=== PATIENT | female | born 1965 | race Caucasian/White ===

== ENCOUNTER → 2018-07-03 | Outpatient (CLI) | payer OTHER | END | disposition home or self-care (01) | LOC: US 06-21 09:00 | DX: R10.84 Generalized abdominal pain (principal); N95.9 Unspecified menopausal and perimenopausal disorder ==

== ENCOUNTER → 2019-08-27 | Day surgery (SDC) | payer OTHER ==
[~2019-08-27] VITALS: Ht 162.5 cm; Wt 49.9 kg
[~2019-08-27] MED LIST: LEVOTHYROXINE125 MCG PO
[2019-08-27 08:51] VITALS: BP 156/78
[2019-08-27 09:32] VITALS: BP 195/117
[2019-08-27 09:47] VITALS: BP 133/65
[2019-08-27 10:02] VITALS: BP 123/63
[2019-08-27 10:16] VITALS: BP 116/66
[2019-08-27 10:32] VITALS: BP 135/75
[2019-08-28 15:04] LABS: ACID FAST SPEC PROCESSING Concentration (.)
== END | disposition home or self-care (01) ==
LOC: SDC 08:27
PROVIDERS: Internal Medicine Critical Care Medicine
DX: J45.40 Moderate persistent asthma, uncomplicated (principal); R91.8 Other nonspecific abnormal finding of lung field; K21.9 Gastro-esophageal reflux disease without esophagitis; R05 Cough; Z79.899 Other long term (current) drug therapy; Z82.5 Family history of asthma and other chronic lower respiratory diseases

== ENCOUNTER → 2019-09-01 | Outpatient (CLI) | payer OTHER ==
[2019-09-01 07:34] LABS: BUN 14 mg/dl (7-24); CREATININE 0.65 mg/dL (0.55-1.02)
== END | disposition home or self-care (01) ==
LOC: LAB 07:10 → CT 08:00
PROVIDERS: Internal Medicine Critical Care Medicine
DX: J98.11 Atelectasis (principal); R91.8 Other nonspecific abnormal finding of lung field; Z01.812 Encounter for preprocedural laboratory examination

== ENCOUNTER → 2019-09-23 | Outpatient (CLI) | payer OTHER | END | disposition home or self-care (01) | LOC: NM 10:53 | DX: Z01.818 Encounter for other preprocedural examination (principal); R91.8 Other nonspecific abnormal finding of lung field; J98.11 Atelectasis ==

== ENCOUNTER → 2019-11-05 | Outpatient (CLI) | payer OTHER | END | disposition home or self-care (01) | LOC: NM 08:27 | DX: J44.9 Chronic obstructive pulmonary disease, unspecified (principal); J98.11 Atelectasis; C34.92 Malignant neoplasm of unspecified part of left bronchus or lung ==

== ENCOUNTER → 2019-11-26 | Outpatient (CLI) | payer OTHER | LOC: CARD 08:51 | DX: Z01.818 Encounter for other preprocedural examination (principal); C34.92 Malignant neoplasm of unspecified part of left bronchus or lung; R06.02 Shortness of breath ==

== ENCOUNTER → 2020-04-25 | Outpatient (CLI) | payer OTHER | END | disposition home or self-care (01) | LOC: CT 09:58 | PROVIDERS: ATTEND Internal Medicine | DX: J90 Pleural effusion, not elsewhere classified (principal); R51.9 Headache, unspecified; R94.5 Abnormal results of liver function studies ==

== ENCOUNTER → 2020-04-28 | Outpatient (CLI) | payer OTHER | END | disposition home or self-care (01) | LOC: US 04-15 08:30 | PROVIDERS: ATTEND Internal Medicine | DX: R42 Dizziness and giddiness (principal) ==

== ENCOUNTER 2020-09-18 07:56 | Observation (INO) | payer OTHER ==
[2020-09-18] VITALS (8 sets, daily range): BP systolic 135–156; BP diastolic 66–96
[~2020-09-18] VITALS: Ht 162.5 cm; Wt 50.4 kg
[2020-09-18 08:27] LABS: BASO % 0.4 % (0.0-1.0); EOS # 0.2 10*3/uL (0.0-0.4); EOS % 2.1 % (1.0-4.0); LYMPH # 1.6 10*3/uL (1.3-4.4); MEAN CELL VOLUME 74.3 fl (81.0-99.0); MEAN CORPUSCULAR HGB 22.9 pg (27.0-31.0); MEAN CORPUSCULAR HGB CONC 30.8 g/dl (33.0-37.0); MEAN PLATELET VOLUME 9.3 fl (9.6-12.3); MONO # 0.5 10*3/uL (0.1-1.0); MONO % 7.6 % (3.0-9.0); NEUT # 4.8 10*3/uL (2.3-7.9); NEUT % 67.6 % (47.0-73.0); PLATELET COUNT AUTOMATED 546 10*3/uL (130-400); RED BLOOD COUNT 4.98 10*6/uL (4.10-5.10); RED CELL DISTRI WIDTH 14.3 % (0-14.5); WHITE BLOOD COUNT 7.2 10*3/uL (4.8-10.8)
[2020-09-18 08:39] LABS: ACT PARTIAL THROMBO TIME 27.1 SECONDS (20.0-32.1)
[2020-09-18 08:44] LABS: ALBUMIN 2.8 gm/dl (3.1-4.5); ALKALINE PHOSPHATASE 252 U/L (45-117); BUN 10 mg/dl (7-24); CHLORIDE 104 mmol/L (98-107); CREATININE 0.67 mg/dL (0.55-1.02); LIPASE 93 U/L (73-393); POTASSIUM 4.1 mmol/L (3.5-5.1); SGOT/AST 45 IU/L (3-35); SGPT/ALT 65 U/L (12-78); SODIUM 138 mmol/L (136-145); TOTAL PROTEIN 7.8 gm/dL (6.4-8.2)
[2020-09-18 08:45] LABS: TROPONIN I < 0.015 ng/ml (<0.045)
[2020-09-18 14:02] LABS: CHOLESTEROL 124 mg/dL (<200); HDL CHOLESTEROL 44 mg/dl (40-60); LDL CHOLESTEROL 58 mg/dL (9-159); TRIGLYCERIDES 110 mg/dl (<150); VLDL CHOLESTEROL 22 mg/dL (6-40)
[2020-09-19] VITALS: BP 145/75
[2020-09-19 08:00] VITALS: BP 134/66
[2020-09-19 08:30] VITALS: BP 124/78
[2020-09-19 12:00] VITALS: BP 145/76
[2020-09-19 16:00] VITALS: BP 138/42
[2020-09-19 20:01] VITALS: BP 124/68
[2020-09-20] VITALS: BP 136/72
[2020-09-20 08:00] VITALS: BP 130/88
[2020-09-20] MEDS ORDERED: CLOPIDOGREL75 MG PO (10:23)
[2020-09-20] MEDS ORDERED: LEADER ASPIRIN325 MG PO (10:23)
== END 2020-09-20 11:25 | disposition home or self-care (01) ==
LOC: ED 07:56 → EDHOLD 09:44 → 5E 09:53
PROVIDERS: Emergency Medicine; ADMIT Internal Medicine; ATTEND Internal Medicine
DX: G81.94 Hemiplegia, unspecified affecting left nondominant side (principal); G95.9 Disease of spinal cord, unspecified; R47.9 Unspecified speech disturbances; I10 Essential (primary) hypertension; E03.9 Hypothyroidism, unspecified; Z90.2 Acquired absence of lung [part of]; Z79.82 Long term (current) use of aspirin; Z79.01 Long term (current) use of anticoagulants; Z79.899 Other long term (current) drug therapy

== ENCOUNTER → 2021-02-03 | Outpatient (CLI) | payer OTHER ==
[~2021-02-03] MED LIST changes: +CLOPIDOGREL75 MG PO; +LEADER ASPIRIN325 MG PO
== END | disposition home or self-care (01) ==
LOC: US 10:18
PROVIDERS: ATTEND Internal Medicine Gastroenterology
DX: R74.8 Abnormal levels of other serum enzymes (principal)

== ENCOUNTER → 2021-03-23 | Outpatient (CLI) | payer OTHER ==
[2021-03-23 11:48] LABS: ALBUMIN 3.2 gm/dl (3.1-4.5); BUN 8 mg/dl (7-24); CHLORIDE 104 mmol/L (98-107); POTASSIUM 4.3 mmol/L (3.5-5.1); SGOT/AST 33 IU/L (3-35); SGPT/ALT 50 U/L (12-78); SODIUM 136 mmol/L (136-145)
[2021-03-23 11:51] LABS: ALKALINE PHOSPHATASE 203 U/L (45-117); TOTAL PROTEIN 8.3 gm/dL (6.4-8.2)
== END | disposition home or self-care (01) ==
LOC: LAB 10:29
PROVIDERS: ATTEND Internal Medicine Gastroenterology
DX: R10.9 Unspecified abdominal pain (principal)

== ENCOUNTER → 2021-03-29 | Outpatient (CLI) | payer OTHER | END | disposition home or self-care (01) | LOC: CT 09:51 | PROVIDERS: ATTEND Internal Medicine Gastroenterology | DX: N28.0 Ischemia and infarction of kidney (principal); R74.8 Abnormal levels of other serum enzymes ==

== ENCOUNTER → 2021-05-26 | Outpatient (CLI) | payer OTHER | END | disposition home or self-care (01) | LOC: LAB 14:49 | PROVIDERS: ATTEND Internal Medicine Gastroenterology | DX: R74.8 Abnormal levels of other serum enzymes (principal) ==

== ENCOUNTER → 2021-08-22 | Outpatient (CLI) | payer OTHER | END | disposition home or self-care (01) | LOC: CT 07:49 | PROVIDERS: ATTEND Internal Medicine | DX: C34.90 Malignant neoplasm of unspecified part of unspecified bronchus or lung (principal); R91.1 Solitary pulmonary nodule; J98.11 Atelectasis; M81.0 Age-related osteoporosis without current pathological fracture; Z85.118 Personal history of other malignant neoplasm of bronchus and lung; Z78.0 Asymptomatic menopausal state; Z90.2 Acquired absence of lung [part of] ==

== ENCOUNTER → 2022-08-03 | Outpatient (CLI) | payer MEDICARE ==
[~2022-08-03] MED LIST changes: +LEVOTHYROXINE100 MC1 PO; +PROPRANOLOL HYD20 MG PO
== END | disposition home or self-care (01) ==
LOC: CARD 06-29 07:30
PROVIDERS: ATTEND Internal Medicine
DX: I10 Essential (primary) hypertension (principal)

== ENCOUNTER → 2022-08-23 | Outpatient (CLI) | payer MEDICARE | END | disposition home or self-care (01) | LOC: CT 08-22 13:00 | PROVIDERS: ATTEND Internal Medicine Critical Care Medicine | DX: R91.1 Solitary pulmonary nodule (principal); Z85.118 Personal history of other malignant neoplasm of bronchus and lung; Z68.1 Body mass index [BMI] 19.9 or less, adult; Z90.2 Acquired absence of lung [part of] ==

== ENCOUNTER → 2022-09-03 | Day surgery (SDC) | payer MEDICARE ==
[~2022-09-03] VITALS: Ht 162.5 cm; Wt 44.5 kg
[2022-09-03 09:13] VITALS: BP 125/50
[2022-09-03 10:07] VITALS: BP 124/58
[2022-09-03 10:22] VITALS: BP 124/66
[2022-09-03 10:29] VITALS: BP 106/67
[2022-09-04 10:37] LABS: BF NEUTROPHILS 43 %
[2022-09-04 10:38] LABS: BF LYMPHOCYTES 7 %; BF MACROPHAGES 50 %
[2022-09-04 11:07] LABS: ACID FAST SPEC PROCESSING Concentration (.)
[2022-09-04 11:08] LABS: ACID FAST SPEC PROCESSING Concentration (.)
== END | disposition home or self-care (01) ==
LOC: SDC 08-31 11:45
PROVIDERS: ATTEND Internal Medicine Critical Care Medicine
DX: R06.02 Shortness of breath (principal); I10 Essential (primary) hypertension; Z85.118 Personal history of other malignant neoplasm of bronchus and lung; Z90.2 Acquired absence of lung [part of]; Z86.73 Personal history of transient ischemic attack (TIA), and cerebral infarction without residual deficits